=== PATIENT | male | born 1960 | race African-American/Black ===

== ENCOUNTER 2017-09-19 13:23 | Emergency (ER) | payer SELFPAY ==
[~2017-09-19] VITALS: Ht 172.7 cm; Wt 92.1 kg
[2017-09-19 13:55] VITALS: BP 115/66; Ht 172.7 cm; Wt 92.1 kg
== END 2017-09-19 16:04 | disposition home or self-care (01) ==
LOC: ED 13:23
DX: J11.1 Influenza due to unidentified influenza virus with other respiratory manifestations (principal)
CPT/HCPCS: J1885